=== PATIENT | male | born 1985 ===

== ENCOUNTER 2020-09-15 03:35 | Emergency (ER) | payer BC ==
[2020-09-15] MEDS ORDERED: Sodium Chloride 0.9% 2.5 ML Syringe FLUSH PRN (04:14)
[2020-09-15] MEDS ORDERED: Sodium Chloride 0.9% 10 ML Syringe FLUSH PRN (04:14)
--- NOTE | 2020-09-15 04:18 | EDM.PDOC ---
ED HPI GENERAL MEDICAL PROBLEM - General Chief Complaint: Abdominal Pain Stated Complaint: ABD AND BACK PAIN Time Seen by Provider: 09/15/20 04:09 - History of Present Illness INITIAL COMMENTS - FREE TEXT/NARRATIVE: History of present illness: [] Condition was awakened at 11:30 PM with pain in the epigastrium that radiated to the right flank and right paraspinal lower thoracic and upper lumbar area. The pain was associated with diaphoresis and nausea. The pain lasted for 3 hours. It went away and then just shortly before arrival at came back. Just before he arrived went away again. He is never had the pain before. It does not radiate down to his testicle. Not vomited. He has not been sick recently. Review of systems: As per history of present illness and below otherwise all systems reviewed and negative. Past medical history: As per history of present illness and as reviewed below otherwise noncontributory. Surgical history: As per history of present illness and as reviewed below otherwise noncontribu tory. Social history: No reported history of drug or alcohol abuse. Family history: As per history of present illness and as reviewed below otherwise noncontributory. Physical exam: Constitutional - well developed, well-nourished and in no acute distress HEENT - normocephalic, no evidence of trauma - external nose and mouth normal - no mass in neck and no JVD - mucosae moist EYES - full EOM, PERRL, no icterus - no evidence of inflammation, injection, or drainage Respiratory - no respiratory distress, equal bilateral expansion, lungs clear to auscultation and no abnormal lung sounds Cardiovascular - Regular Rhythm with S1 and S2 appreciated and no murmur, gallop or rub. GI - abdomen soft without distension or organomegaly - normal bowel sounds - no guard or rebound Musculoskeletal no gross deformity of long bones or joints - no tenderness, swelling or edema Neurologic - Alert and oriented times four - CN II-XII grossly intact - motor sensory and coordination symmetrically normal Psychiatric - appropriate mood and affect with normal thought content Hematologic - No petechiae or purpura - mucosa appropriate color and sclera not pale - normal nail bed color and refill Integument - no rash or evidence of trauma - normal turgor Diagnostics: [] Therapeutics: [] Impression: [] Plan: [] Definitive disposition and diagnosis as appropriate pending reevaluation and rev iew of above. Abdomen Pain Score (Numeric/FACES): 7 - Related Data Allergies Allergy/AdvReac Type Severity Reaction Status Date / Time sulfamethoxazole Allergy Hives Verified 09/15/20 03:51 [From ] trimethoprim [From ] Allergy Hives Verified 09/15/20 03:51 Home Meds: Home Meds Aspirin 81 mg PO DAILY 09/15/20 [History] Cholecalciferol (Vitamin D3) [Vitamin D] 5,000 unit PO DAILY 09/15/20 [History] Dulaglutide [Trulicity] 1.5 mg SQ ASDIRECTED 09/15/20 [History] Ezetimibe 10 mg PO DAILY 09/15/20 [History] Fexofenadine [Jacqueline] 100 mg PO DAILY 09/15/20 [History] Glimepiride 2 mg PO BID 09/15/20 [History] Multivitamin [Multi-Vitamin Daily] 1 each PO DAILY 09/15/20 [History] lisinopriL [Lisinopril] 20 mg PO DAILY 09/15/20 [History] metFORMIN [Glucophage] 500 mg PO BIDMEALS 09/15/20 [History] Past Medical History HEENT History: Reports: None Cardiovascular History: Reports: Hypertension Respiratory History: Reports: None Gastrointestinal History: Reports: None Genitourinary History: Reports: None Musculoskeletal History: Reports: None Neurological History: Reports: None Psychiatric History: Reports: None Endocrine/Metabolic History: Reports: Diabetes, Type II Insulin Pump Model and Paid Intern: N/A Hematologic History: Reports: None Immunologic History: Reports: None Oncologic (Cancer) History: Reports: None Dermatologic History: Reports: None - Infectious Disease History Infectious Disease History: Reports: None - Past Surgical History Head Surgeries/Procedures: Reports: None Social & Family History - Family History Family Medical History: Noncontributory - Tobacco Use Tobacco Use Status *Q: Never Tobacco User - Caffeine Use Caffeine Use: Reports: Coffee, Soda - Recreational Drug Use Recreational Drug Use: No ED ROS GENERAL - Review of Systems Review Of Systems: Comprehensive ROS is negative, except as noted in HPI. ED EXAM, GENERAL - Physical Exam Exam: See Below Free Text/Narrative:: My physical exam is in the HPI #1 Interpretation EKG Interpretation Comments: Electrocardiogram was done at 1028 at 4:20 AM and interpreted at 429. Sinus rhythm heart rate 86 [place] 0. [place] interval 156 QT 412. Normal QRS. Normal ST and T. No prior for comparison. Impression normal Course - Vital Signs Text/Narrative:: Oh 5:20 AM the appendix was enlarged on the CT. There is no blood in the urine. There is no evidence of kidney stone. The patient is slightly tender in the right upper quadrant with suggestion of a minimal Squires sign. The patient has no tenderness in the right lower quadrant no referred tenderness to the right lower quadrant no guarding rebound. Patient's pain was sudden and episodic with 2 episodes tonight. Gallstone is on the differential diagnosis and without a white count or fever and with no tenderness I do not suspect appendicitis even though the appendix is slightly enlarged. 05 20 8 AM the patient has a slightly enlarged appendix on the CT but no tenderness there. His tenderness is in the right upper quadrant. Because the episodic nature of his pain I plan to verify that he does or does not have gallstones by ultrasound. The patient's leukosis been running in the 200s. He gets a weekly parenteral diabetic medication and has not been on supplements. This is the first time in over 300 but he had a pizza last night. Plan supplement with regular because of the dietary cause of his surgery. We also have given him a liter of fluids. Will probably be able to control this today and complete his work-up for his abdominal pain I will let his primary doctor follow-up on the possibility of adding a sliding scale or other medications for diabetes. 652 the blood sugar came down to 168. Patient will be given something to eat. The ultrasound is pending at the end of my shift and the ultimate disposition will be up to my partner. I plan to put the patient on a proton pump inhibitor and advised the patient as to whether the radiologist thinks he sees gallstones. I did not think so on the ultrasound. No 704 the radiologist did call. Dr. Bolivar. He felt like there is a 1.8 cm mass it could be a sludge ball or polyp in the gallbladder but the size warranted an MRCP. The common duct was generous in size as well. Patient has no white count fever and understands he needs to follow-up with the surgical clinic and have an MRCP. Last Recorded V/S: Last Vital Signs Temp 97.3 F 09/15/20 03:45 Pulse 80 09/15/20 05:22 Resp 18 10/28/20 05:22 BP 130/86 09/15/20 05:22 Pulse Ox 98 09/15/20 05:22 - Orders/Labs/Meds Orders: Active Orders 24 hr Category Date Time Status EKG Documentation Completion [RC] AM Care 09/15/20 04:14 Active Sodium Chloride 0.9% [Normal Saline] 1,000 ml Med 09/15/20 04:30 Active IV ASDIRECTED Sodium Chloride 0.9% [Saline Flush] Med 09/15/20 04:14 Active 10 ml FLUSH ASDIRECTED PRN Sodium Chloride 0.9% [Saline Flush] Med 09/15/20 04:14 Active 2.5 ml FLUSH ASDIRECTED PRN Saline Lock Insert [OM.PC] Stat Oth 09/15/20 04:14 Ordered Medication Orders Sodium Chloride (Normal Saline) 1,000 mls @ 250 mls/hr IV ASDIRECTED FELICIA Last Infusion: 09/15/20 04:35 Dose: 999 mls/hr Documented by: Admin: 09/15/20 04:30 Dose: 250 mls/hr Documented by: TATY Sodium Chloride (Saline Flush) 10 ml FLUSH ASDIRECTED PRN PRN Reason: Keep Vein Open Last Admin: 09/15/20 05:00 Dose: 10 ml Documented by: TATY Sodium Chloride (Saline Flush) 2.5 ml FLUSH ASDIRECTED PRN PRN Reason: Keep Vein Open Last Admin: 09/15/20 05:01 Dose: 2.5 ml Documented by: TATY Labs: Laboratory Tests 09/15/20 09/15/20 09/15/20 Range/Units 03:45 03:50 03:50 WBC 9.80 (4.0-11.0) K/uL RBC 5.19 (4.50-5.90) M/uL Hgb 16.1 (13.0-17.0) g/dL Hct 47.8 (38.0-50.0) % MCV 92.1 (80.0-98.0) fL MCH 31.0 (27.0-32.0) pg MCHC 33.7 (31.0-37.0) g/dL RDW Std Deviation 45.5 (28.0-62.0) fl RDW Coeff of Leno 13 (11.0-15.0) % Plt Count 292 (150-400) K/uL MPV 10.30 (7.40-12.00) fL Neut % (Auto) 69.3 (48.0-80.0) % Lymph % (Auto) 22.7 (16.0-40.0) % [place] % (Auto) 7.0 (0.0-15.0) % Eos % (Auto) 0.8 (0.0-7.0) % Baso % (Auto) 0.2 (0.0-1.5) % Neut # (Auto) 6.8 H (1.4-5.7) K/uL Lymph # (Auto) 2.2 (0.6-2.4) K/uL [place] # (Auto) 0.7 (0.0-0.8) K/uL Eos # (Auto) 0.1 (0.0-0.7) K/uL Baso # (Auto) 0.0 (0.0-0.1) K/uL Nucleated RBC % 0.0 /100WBC Nucleated RBCs # 0 K/uL Sodium 134 L (136-148) mmol/L Potassium 4.2 (3.5-5.1) mmol/L Chloride 101 (98-107) mmol/L Carbon Dioxide 22.8 (21.0-32.0) mmol/L BUN 12 (7.0-18.0) mg/dL Creatinine 0.9 (0.8-1.3) mg/dL Est Cr Clr Drug Dosing 110.83 mL/min Estimated GFR (MDRD) > 60.0 ml/min Glucose 304 H (74-106) mg/dL POC Glucose (60-110) mg/dL Calcium 8.9 (8.5-10.1) mg/dL Total Bilirubin 0.3 (0.2-1.0) mg/dL AST 29 (15-37) IU/L ALT 59 (14-63) IU/L Alkaline Phosphatase 133 H (46-116) U/L Troponin I (0.000-0.056) ng/mL Total Protein 7.6 (6.4-8.2) g/dL Albumin 4.3 (3.4-5.0) g/dL Globulin 3.3 (2.6-4.0) g/dL Albumin/Globulin Ratio 1.3 (0.9-1.6) Lipase 187 (73-393) U/L Urine Color YELLOW Urine Appearance CLEAR Urine pH 6.5 (5.0-8.0) Ur Specific [place] 1.015 (1.001-1.035) Urine Protein NEGATIVE (NEGATIVE) mg/dL Urine Glucose (UA) >=1000 (NEGATIVE) mg/dL Urine Ketones 15 H (NEGATIVE) mg/dL Urine Occult Blood NEGATIVE (NEGATIVE) Urine Nitrite NEGATIVE (NEGATIVE) Urine Bilirubin NEGATIVE (NEGATIVE) Urine Urobilinogen 0.2 (<2.0) EU/dL Ur Leukocyte Esterase NEGATIVE (NEGATIVE) 09/15/20 09/15/20 Range/Units 03:50 06:21 WBC (4.0-11.0) K/uL RBC (4.50-5.90) M/uL Hgb (13.0-17.0) g/dL Hct (38.0-50.0) % MCV (80.0-98.0) fL MCH (27.0-32.0) pg MCHC (31.0-37.0) g/dL RDW Std Deviation (28.0-62.0) fl RDW Coeff of Leno (11.0-15.0) % Plt Count (150-400) K/uL MPV (7.40-12.00) fL Neut % (Auto) (48.0-80.0) % Lymph % (Auto) (16.0-40.0) % [place] % (Auto) (0.0-15.0) % Eos % (Auto) (0.0-7.0) % Baso % (Auto) (0.0-1.5) % Neut # (Auto) (1.4-5.7) K/uL Lymph # (Auto) (0.6-2.4) K/uL [place] # (Auto) (0.0-0.8) K/uL Eos # (Auto) (0.0-0.7) K/uL Baso # (Auto) (0.0-0.1) K/uL Nucleated RBC % /100WBC Nucleated RBCs # K/uL Sodium (136-148) mmol/L Potassium (3.5-5.1) mmol/L Chloride (98-107) mmol/L Carbon Dioxide (21.0-32.0) mmol/L BUN (7.0-18.0) mg/dL Creatinine (0.8-1.3) mg/dL Est Cr Clr Drug Dosing mL/min Estimated GFR (MDRD) ml/min Glucose (74-106) mg/dL POC Glucose 162 H (60-110) mg/dL Calcium (8.5-10.1) mg/dL Total Bilirubin (0.2-1.0) mg/dL AST (15-37) IU/L ALT (14-63) IU/L Alkaline Phosphatase (46-116) U/L Troponin I < 0.050 (0.000-0.056) ng/mL Total Protein (6.4-8.2) g/dL Albumin (3.4-5.0) g/dL Globulin (2.6-4.0) g/dL Albumin/Globulin Ratio (0.9-1.6) Lipase (73-393) U/L Urine Color Urine Appearance Urine pH (5.0-8.0) Ur Specific [place] (1.001-1.035) Urine Protein (NEGATIVE) mg/dL Urine Glucose (UA) (NEGATIVE) mg/dL Urine Ketones (NEGATIVE) mg/dL Urine Occult Blood (NEGATIVE) Urine Nitrite (NEGATIVE) Urine Bilirubin (NEGATIVE) Urine Urobilinogen (<2.0) EU/dL Ur Leukocyte Esterase (NEGATIVE) Meds: Medications Generic Name Dose Route Start Last Admin Trade Name Freq PRN Reason Stop Dose Admin Sodium Chloride 1,000 mls @ 250 mls/hr 09/15/20 04:30 09/15/20 04:35 Normal Saline IV 999 mls/hr ASDIRECTED FELICIA Infusion Sodium Chloride 10 ml 09/15/20 04:14 09/15/20 05:00 Saline Flush FLUSH 10 ml ASDIRECTED PRN Administration Keep Vein Open Sodium Chloride 2.5 ml 09/15/20 04:14 09/15/20 05:01 Saline Flush FLUSH 2.5 ml ASDIRECTED PRN Administration Keep Vein Open Discontinued Medications Generic Name Dose Route Start Last Admin Trade Name Freq PRN Reason Stop Dose Admin Dextrose/Water 50 ml 09/15/20 05:27 Dextrose 50% In Water IV ASDIRECTED PRN Hypoglycemia Glucagon 1 mg 09/15/20 05:27 Glucagen IM ASDIRECTED PRN Hypoglycemia Insulin Human Regular 8 unit 09/15/20 05:27 09/15/20 05:45 Novolin R IVPUSH 09/15/20 05:28 8 unit ONETIME ONE Administration Protocol Departure - Departure Time of Disposition: 07:03 Disposition: Home, Self-Care 01 Condition: Good Clinical Impression: Abdominal pain, Gall bladder polyp - Discharge Information Referrals: PCP,None [Primary Care Provider] - Forms: ED Department Discharge Additional Instructions: Your ultrasound showed what may be a large polyp in the gallbladder. It is large enough to warrant follow-up and an MRCP. Please make an appointment with primary care at the surgical clinic and follow-up on this take an [id number] proton pump inhibitor. The pharmacist can advise on the least costly. This is something such as omeprazole or pantoprazole. You can use antiacids when you get a sharp sudden pain and see if that helps. In the meantime because your appendix was slightly dilated if you have a fever and increasing pain in the right lower quadrant you should return. [facility] - General Surgery Professional Building [address] [place] [address], [address] [place] [address] [facility] - Primary [facility] [address] [place] [address] [place] [address] The following information is given to patients seen in the emergency department who are being discharged to home. This information is to outline your options for follow-up care. We provide all patients seen in our emergency department with a follow-up referral. The need for follow-up, as well as the timing and circumstances, are variable depending upon the specifics of your emergency department visit. If you don't have a primary care physician on staff, we will provide you with a referral. We always advise you to contact your personal physician following an emergency department visit to inform them of the circumstance of the visit and for follow-up with them and/or the need for any referrals to a consulting specialist. The emergency department will also refer you to a specialist when appropriate. This referral assures that you have the opportunity for follow-up care with a specialist. All of these measure are taken in an effort to provide you with optimal care, which includes your follow-up. Under all circumstances we always encourage you to contact your private physician who remains a resource for coordinating your care. When calling for follow-up care, please make the office aware that this follow-up is from your recent emergency room visit. If for any reason you are refused follow-up, please contact the [facility] Emergency Department at and asked to speak to the emergency department charge nurse. Sepsis Event Note (ED) - Evaluation Sepsis Screening Result: No Definite Risk - Focused Exam Vital Signs: Vital Signs Temp Pulse Resp BP Pulse Ox 09/15/20 05:22 80 18 130/86 98 09/15/20 03:45 97.3 F 96 18 144/92 H 97 - My Orders Last 24 Hours: My Active Orders 09/15/20 04:14 EKG Documentation Completion [RC] AM Sodium Chloride 0.9% [Saline Flush] 10 ml FLUSH ASDIRECTED PRN Sodium Chloride 0.9% [Saline Flush] 2.5 ml FLUSH ASDIRECTED PRN Saline Lock Insert [OM.PC] Stat 09/15/20 04:30 Sodium Chloride 0.9% [Normal Saline] 1,000 ml IV ASDIRECTED - Assessment/Plan Last 24 Hours: My Active Orders 09/15/20 04:14 EKG Documentation Completion [RC] AM Sodium Chloride 0.9% [Saline Flush] 10 ml FLUSH ASDIRECTED PRN Sodium Chloride 0.9% [Saline Flush] 2.5 ml FLUSH ASDIRECTED PRN Saline Lock Insert [OM.PC] Stat 09/15/20 04:30 Sodium Chloride 0.9% [Normal Saline] 1,000 ml IV ASDIRECTED
[2020-09-15] MEDS ORDERED: Sodium Chloride 0.9% 1,000 ML IV SCH (04:30)
[2020-09-15 04:36] LABS: BLOOD UREA NITROGEN,BUN 12 mg/dL (7.0-18.0); CARBON DIOXIDE,CO2 22.8 mmol/L (21.0-32.0); CHLORIDE,CL 101 mmol/L (98-107); GLUCOSE RANDOM 304 mg/dL (74-106); LIPASE 187 U/L (73-393); POTASSIUM,K 4.2 mmol/L (3.5-5.1); SODIUM,NA 134 mmol/L (136-148)
--- NOTE | 2020-09-15 04:48 | CR ---
INDICATION: Epigastric pain radiating to the back TECHNIQUE: Chest radiograph 1 view COMPARISON: None FINDINGS: Moderate degradation of image quality noted due to body habitus. Mediastinum: The mediastinum is normal in appearance. The heart silhouette is normal in size and morphology. Lung: Both lungs are unremarkable in appearance. No sign of pleural effusion seen. No pneumothorax is identified. Bone and Soft tissue: Unremarkable for age. IMPRESSION: 1. No acute cardiopulmonary disease is seen. Dictated by: Abel Domínguez MD @ 09/15/2020 04:47:45 (Electronically Signed)
--- NOTE | 2020-09-15 05:07 | CT ---
INDICATION: Epigastric pain radiating to the back TECHNIQUE: CT Abdomen and pelvis without i.v. contrast. Coronal and sagittal reformats were obtained. COMPARISON: None FINDINGS: Lower chest: Unremarkable. Liver: Mild fatty infiltration of the liver is noted. Spleen: Unremarkable. Pancreas: Unremarkable. Gallbladder: Unremarkable. Kidney: Unremarkable. No kidney or ureteral stones or obstruction seen. Adrenal: Unremarkable. Bowel: Unremarkable. Mild enlargement of the appendix is noted measuring 9 mm, with no secondary inflammatory changes seen. Vascular: Unremarkable. Lymph: Unremarkable. Peritoneum: Unremarkable. No pneumoperitoneum is seen. No significant ascites is noted. Pelvis: Unremarkable. Soft tissue: Unremarkable. Bone: Tiny bone islands are present over the right proximal femur and left parasymphyseal region. IMPRESSION: 1. Mild enlargement of the appendix is noted measuring 9 mm, with no secondary inflammatory changes seen. Clinical correlation and followup recommended to distinguish between a normal ectatic variant or early stage appendicitis. Dictated by Abel Domínguez MD @ 09/15/2020 5:06:15 AM Please note that all CT scans at this facility use dose modulation, iterative reconstruction, and/or weight-based dosing when appropriate to reduce radiation dose to as low as reasonably achievable. Dictated by: Abel Domínguez MD @ 09/15/2020 05:06:17 (Electronically Signed)
[2020-09-15] MEDS ORDERED: Insulin Regular, Human 100 Units/ML 10 ML Vial IVPUSH ONE (05:27)
[2020-09-15] MEDS ORDERED: Glucagon,Human Recombinant 1 MG Vial IM PRN (05:27)
[2020-09-15] MEDS ORDERED: 50% Dextrose in Water 50 ML Syringe IV PRN (05:27)
--- NOTE | 2020-09-15 06:53 | US ---
Indication: Right upper quadrant pain. Technique: Sonography of the abdomen was performed limited to the structures discussed below. Comparison: No prior ultrasounds for comparison Findings: The liver is normal in size. Echogenicity is slightly increased probably related to fatty infiltration. There is no focal mass and there is no evidence of intra or extrahepatic biliary ductal dilatation. The gallbladder shows non shadowing nonmobile focus in the fundus. This is relatively large measuring about 1.8 centimeters. This could be the focal form of adenomyosis, a polyp or an adherent sludge ball. Polyps of this size are generally considered potentially suspicious for malignancy and appropriate follow up is advised. There is no wall thickening, sonographic Squires`s or pericholecystic fluid. The common duct measures 7 millimeters which is prominent for a patient of this age. The pancreas is obscured by bowel gas. The right kidney as visualized appears normal The right lower quadrant was studied and the appendix could not be seen as a structure normal or otherwise. Therefore I can neither include or exclude appendicitis on the basis of this exam. Impression: 1. Hepatic steatosis. No focal mass or biliary ductal dilatation. 2. Focal mass and the fundus of the gallbladder measuring 1.8 centimeters. This could be the focal form of adenomyomatosis, a polyp or an adherent sludge ball. Polyps of this size are generally considered worrisome for harboring malignancy. Appropriate follow up is advised. 3. Mildly prominent common bile duct. The common duct measures 7 millimeters. 4. Pancreas obscured by bowel gas. Right kidney appears normal 5. The appendix is not seen as a structure normal otherwise appearance Dictated by Alex Bolivar MD @ Sep 15 2020 6:47AM Signed by Dr. Alex Bolivar @ Sep 15 2020 6:53AM
== END 2020-09-15 07:21 | disposition home or self-care (01) ==
LOC: MW.ED 03:35
DX: K82.4 Cholesterolosis of gallbladder (principal); Z79.82 Long term (current) use of aspirin; E11.9 Type 2 diabetes mellitus without complications; I10 Essential (primary) hypertension; Z79.84 Long term (current) use of oral hypoglycemic drugs; Z88.2 Allergy status to sulfonamides; Z88.1 Allergy status to other antibiotic agents; Z79.899 Other long term (current) drug therapy
CPT/HCPCS: 36415; 71045; 74176; 76705; 80053; 81003; 82962; 83690; 84484; 85025; 93005; 99284; J7030; 93010; 99285; J1815-GY

== ENCOUNTER 2020-10-06 06:34 | Day surgery (SDC) | payer BC ==
[~2020-10-06 06:34] MED LIST: Lactated Ringers 1,000 ML IV SCH; Sodium Chloride 0.9% 10 ML SDV IV PRN; Sodium Chloride 0.9% 10 ML Syringe FLUSH PRN; Sodium Chloride 0.9% 2.5 ML Syringe FLUSH PRN; ceFAZolin 2 GM in Premix Bag 1 BAG IV ONE
[2020-10-06] MEDS ORDERED: Rocuronium Bromide 50 MG/5 ML Syringe ONE (07:04)
[2020-10-06] MEDS ORDERED: Propofol 200 MG/20 ML SDV ONE ×2 (07:04→08:59)
[2020-10-06] MEDS ORDERED: fentaNYL 250 MCG/5 ML SDV ONE (07:04)
[2020-10-06] MEDS ORDERED: Lidocaine 2% 5 ML SDV ONE (07:04)
[2020-10-06] MEDS ORDERED: Midazolam 1 MG/ML 2 ML SDV ONE (07:04)
[2020-10-06] MEDS ORDERED: Dexamethasone 4 MG/ML 5 ML MDV ONE (07:04)
[2020-10-06] MEDS ORDERED: Ondansetron 4 MG/2 ML SDV ONE (07:04)
[2020-10-06] MEDS ORDERED: Ketamine 500 mg/10 ML MDV ONE (07:05)
--- NOTE | 2020-10-06 07:19 | PCM.PREANE ---
Preanesthetic Assessment - Anesthesia/Transfusion/Family Hx Anesthesia History: Prior Anesthesia Without Reaction Other Type of Anesthesia Reaction Comment: "mother and aunt had hard time coming out of anesthesia" Family History of Anesthesia Reaction: No Transfusion History: No Prior Transfusion(s) Intubation History: Unknown - Review of Systems General: No Symptoms Pulmonary: No Symptoms Cardiovascular: No Symptoms Gastrointestinal: Abdominal Pain Neurological: No Symptoms Other: Reports: None - Physical Assessment Height: 5 ft 8 in Weight: 102.965 kg ASA Class: 2 Mental Status: Alert & Oriented x3 Airway Class: Mallampati = 3 Dentition: Reports: Normal Dentition Thyro-Mental Finger Breadths: 3 Mouth Opening Finger Breadths: 3 ROM/Head Extension: Full Lungs: Clear to Auscultation, Normal Respiratory Effort Cardiovascular: Regular Rate, Regular Rhythm - Allergies Allergies/Adverse Reactions: Allergies Allergy/AdvReac Type Severity Reaction Status Date / Time sulfamethoxazole Allergy Hives Verified 10/01/20 11:56 [From ] trimethoprim [From ] Allergy Hives Verified 10/01/20 11:56 - Blood Blood Available: No - Anesthesia Plan Pre-Op Medication Ordered: None - Acknowledgements Anesthesia Type Planned: General Anesthesia Pt an Appropriate Candidate for the Planned Anesthesia: Yes Alternatives and Risks of Anesthesia Discussed w Pt/Guardian: Yes Pt/Guardian Understands and Agrees with Anesthesia Plan: Yes PreAnesthesia Questionnaire HEENT History: Reports: None Other HEENT History: wears glasses Cardiovascular History: Reports: High Cholesterol, Hypertension Respiratory History: Reports: None Gastrointestinal History: Reports: Cholelithiasis Other Gastrointestinal History: symptomatic cholelithiasis Genitourinary History: Reports: None Musculoskeletal History: Reports: None Neurological History: Reports: None Psychiatric History: Reports: None Endocrine/Metabolic History: Reports: Diabetes, Type II (glucose level 204 this morning), Obesity/BMI 30+ (BMI 34.5) Hematologic History: Reports: None Immunologic History: Reports: None Oncologic (Cancer) History: Reports: None Dermatologic History: Reports: None - Infectious Disease History Infectious Disease History: Reports: None - Past Surgical History Head Surgeries/Procedures: Reports: None HEENT Surgical History: Reports: Oral Surgery Cardiovascular Surgical History: Reports: None Respiratory Surgical History: Reports: None GI Surgical History: Reports: None Male Surgical History: Reports: None Endocrine Surgical History: Reports: None Neurological Surgical History: Reports: None Musculoskeletal Surgical History: Reports: None Oncologic Surgical History: Reports: None Dermatological Surgical History: Reports: Other (See Below) - SUBSTANCE USE Tobacco Use Status *Q: Never Tobacco User Recreational Drug Use History: No - HOME MEDS Home Medications: Home Meds Aspirin 81 mg PO DAILY 09/15/20 [History] Cholecalciferol (Vitamin D3) [Vitamin D] 5,000 unit PO DAILY 09/15/20 [History] Dulaglutide [Trulicity] 1.5 mg SQ WEEKLY 09/15/20 [History] Ezetimibe 10 mg PO DAILY 09/15/20 [History] Fexofenadine [Jacqueline] 100 mg PO DAILY 09/15/20 [History] Glimepiride 2 mg PO BID 09/15/20 [History] Multivitamin [Multi-Vitamin Daily] 1 each PO DAILY 09/15/20 [History] lisinopriL [Lisinopril] 20 mg PO DAILY 09/15/20 [History] metFORMIN [Glucophage] 500 mg PO BIDMEALS 09/15/20 [History] Esomeprazole Magnesium [Nexium] 20 mg PO DAILY 10/01/20 [History] - CURRENT (IN HOUSE) MEDS Current Meds: Current Medications Lactated Ringer's (Ringers, Lactated) 1,000 mls @ 125 mls/hr IV ASDIRECTED FELICIA Sodium Chloride (Saline Flush) 2.5 ml FLUSH ASDIRECTED PRN PRN Reason: Keep Vein Open Sodium Chloride (Normal Saline) 10 ml IV ASDIRECTED PRN PRN Reason: IV Use Sodium Chloride (Saline Flush) 10 ml FLUSH ASDIRECTED PRN PRN Reason: Keep Vein Open Discontinued Medications Dexamethasone (Dexamethasone) Confirm Administered Dose 20 mg .ROUTE .STK-MED ONE Stop: 10/06/20 07:05 Fentanyl (Sublimaze) Confirm Administered Dose 250 mcg .ROUTE .STK-MED ONE Stop: 10/06/20 07:05 Cefazolin Sodium/Dextrose 2 gm (/ Premix) 50 mls @ 100 mls/hr IV ONETIME ONE Stop: 10/04/20 11:19 Ketamine HCl (Ketalar) Confirm Administered Dose 500 mg .ROUTE .STK-MED ONE Stop: 10/06/20 07:06 Lidocaine (Xylocaine-Mpf 2%) Confirm Administered Dose 5 ml .ROUTE .STK-MED ONE Stop: 10/06/20 07:05 Midazolam HCl (Versed 1 Mg/Ml) Confirm Administered Dose 2 mg .ROUTE .STK-MED ONE Stop: 10/06/20 07:05 Ondansetron HCl (Zofran) Confirm Administered Dose 4 mg .ROUTE .STK-MED ONE Stop: 10/06/20 07:05 Propofol (Diprivan 20 Ml) Confirm Administered Dose 400 mg .ROUTE .STStreamcore System-MED ONE Stop: 10/06/20 07:05 Rocuronium [place] (Rocuronium [place]ley) Confirm Administered Dose 50 mg .ROUTE .STK-MED ONE Stop: 10/06/20 07:05
[2020-10-06] MEDS ORDERED: Bupivacaine 0.5% 30 ML SDV ONE (07:32)
[2020-10-06] MEDS ORDERED: ePHEDrine 50 MG/ML SDV ONE (08:28)
[2020-10-06] MEDS ORDERED: Sodium Chloride 0.9% 20 ML ONE (08:29)
[2020-10-06] MEDS ORDERED: Glycopyrrolate 0.2 MG/ML SDV ONE (08:47)
[2020-10-06] MEDS ORDERED: fentaNYL 100 MCG/2 ML SDV IVPUSH PRN (09:13)
[2020-10-06] MEDS ORDERED: Ketorolac 30 MG/ML SDV ONE (09:26)
--- NOTE | 2020-10-06 09:47 | PCM.OPNOTE ---
- General Post-Op/Procedure Note Date of Surgery/Procedure: 10/06/20 Operative Procedure(s): Laparoscopic cholecystectomy Findings: Gallbladder with minimal omental adhesions Pre Op Diagnosis: Symptomatic cholelithiasis Post-Op Diagnosis: same Anesthesia Technique: General ET Tube Primary Surgeon: Cee Spencer Pathology: Gallbladder Fluid Replacement, Intraop: 1,800 Output, Urine Amount: 240 EBL in mLs: 10 Condition: Good
--- NOTE | 2020-10-06 10:40 | PCM.POSTAN ---
POST ANESTHESIA ASSESSMENT - MENTAL STATUS Mental Status: Alert, Oriented - VITAL SIGNS Vital Signs: Last Vital Signs Temp 36.6 C 10/06/20 09:40 Pulse 60 10/06/20 10:36 Resp 18 10/06/20 10:36 BP 126/71 10/06/20 10:36 Pulse Ox 96 10/06/20 10:36 - RESPIRATORY Respiratory Status: Respiratory Rate WNL, Airway Patent, O2 Saturation Stable - CARDIOVASCULAR CV Status: Pulse Rate WNL, Blood Pressure Stable - GASTROINTESTINAL GI Status: No Symptoms - PAIN Pain Score: 0 - POST OP HYDRATION Hydration Status: Adequate & Stable - OBSERVATIONS Free Text/Narrative:: No anesthesia problems
--- NOTE | 2020-10-06 10:42 | OR ---
SURGEON: CEE SPENCER MD DATE OF PROCEDURE: 10/06/2020 PREOPERATIVE DIAGNOSIS: Symptomatic cholelithiasis. POSTOPERATIVE DIAGNOSIS: Symptomatic cholelithiasis. PROCEDURE PERFORMED: Laparoscopic cholecystectomy. PRIMARY SURGEON: Cee Spencer MD ANESTHESIA: General endotracheal anesthesia. FLUIDS: 1800 mL of crystalloid. ESTIMATED BLOOD LOSS: 10 mL. URINE OUTPUT: 240 mL. FINDINGS: Gallbladder with some mild omental adhesions. COMPLICATIONS: None. INDICATIONS: The patient is a 35-year-old male who presented to the emergency room with upper abdominal pain. Workup revealed a mass in the gallbladder. MRCP was performed to clarify this. This showed gallbladder with gallstones as well as sludge and no evidence of a mass. The patient was diagnosed with symptomatic cholelithiasis. We discussed the need for cholecystectomy. I explained that I would attempt this laparoscopically, but convert to open should I be unable to perform it safely. I discussed the expected perioperative course as well as the risks including bleeding, infection, or damage to surrounding structures. The patient verbalized understanding and wishes to proceed. PROCEDURE IN DETAIL: The patient was brought into the OR and placed on the OR table in supine position. A time-out was completed verifying the patient's name, age, date of , allergies, and procedure to be performed. General endotracheal anesthesia was induced. The left arm was tucked to the patient's side and a Andersen catheter placed. The patient was secured to the table. The abdomen was prepped and draped in usual standard fashion. I anesthetized the infraumbilical fold with 0.5% Marcaine plain. An 11 blade was used to make an incision along the infraumbilical fold. Cautery was used to dissect down to the level of the subcutaneous fat. I then bluntly dissected down to the fascia. The fascia was elevated with Ar's and incised sharply with curved Cox scissors. The peritoneum was identified. This was elevated and incised sharply as well. Entry to the abdomen was palpated digitally. A 12 mm Lenora trocar was placed into the abdomen and the abdomen insufflated. I inserted a 5 mm 30-degree scope and inspected the area underneath my initial trocar placement. No damage to surrounding structures was noted. 5 mm trocars were placed in the following locations under direct visualization; one in the epigastric area, one in the right flank, and one 2 fingerbreadths below the right subcostal margin in the midclavicular line. The patient was placed into reverse Trendelenburg position and airplaned slightly to the left. The dome of the gallbladder was grasped and elevated cranially. There was some omental adhesions along the proximal half of the gallbladder. These were taken down using gentle blunt dissection as well as hook cautery. Once this was completed, I grasped the infundibulum. I began dissection along the cystic duct and artery. There was a large amount of fat and some dense adhesions around this area. Using blunt dissection as well as hook cautery, I dissected the area free. I could see the right hepatic artery along the base of my dissection field. Because of this, I dissected my gallbladder off the cystic plate correction up the gallbladder. I then cleared away any adhesions. Once my critical view was achieved, a photograph was taken. I doubly clipped and ligated my cystic duct and artery. There was one small branch vessel that was coming off the side. I clipped and ligated this as well. I then carried my dissection up the distal half of the cystic plate using electrocautery. The gallbladder was removed and placed in an Endo Catch bag. I inspected my operative field. Small bleeding points were cauterized with hook cautery. A small piece of Surgicel was placed within the proximal gallbladder bed and hemostasis was achieved. A small amount of bile was spilled into the abdomen from the gallbladder itself. This was suctioned out and the abdomen irrigated until the irrigant ran clear. I reinspected my operative field and it was hemostatic with no evidence of bile leakage. The 5 mm trocars were removed under direct visualization, the abdomen allowed to desufflate. I then removed my 12 mm trocar as well as the Endo Catch bag with the gallbladder in it. The gallbladder was sent to pathology. The fascia at the infraumbilical port site was closed with interrupted 0 Vicryl sutures. The subcutaneous fat layer was closed with an interrupted 3-0 Vicryl stitch. The skin was closed with a running 4-0 Monocryl stitch. The 5 mm trocar sites were closed with interrupted 4-0 Monocryl sutures. Steri-Strips and sterile dressings were applied. The patient tolerated the procedure well and was transferred to the PACU in stable condition. All counts were complete and correct at the end of the case. LEMEASH / YAN /[id number]
[2020-10-06] MEDS ORDERED: Acetaminophen 1,000 MG in Premix Bag 1 BAG IV PRN (11:30)
[2020-10-06] MEDS ORDERED: Acetaminophen/oxyCODONE 325-5 MG Tab PO ONE (11:49)
--- NOTE | 2020-10-06 12:40 | PCM48HPAN ---
Post Anesthesia Note - EVALUATION WITHIN 48HRS OF ANESTHETIC Vital Signs in Normal Range: Yes Patient Participated in Evaluation: Yes Respiratory Function Stable: Yes Airway Patent: Yes Cardiovascular Function Stable: Yes Hydration Status Stable: Yes Pain Control Satisfactory: Yes Nausea and Vomiting Control Satisfactory: Yes Mental Status Recovered: Yes Vital Signs: Last Vital Signs Temp 36.6 C 10/06/20 09:40 Pulse 60 10/06/20 10:36 Resp 18 10/06/20 10:36 BP 126/71 10/06/20 10:36 Pulse Ox 96 10/06/20 10:36 - COMMENTS/OBSERVATIONS Free Text/Narrative:: No anesthesia problems
== END 2020-10-06 12:45 | disposition home or self-care (01) ==
LOC: MW.SDS 06:34
PROVIDERS: ATTEND Surgery
DX: K80.10 Calculus of gallbladder with chronic cholecystitis without obstruction (principal); E11.9 Type 2 diabetes mellitus without complications; I10 Essential (primary) hypertension; E78.00 Pure hypercholesterolemia, unspecified; Z88.2 Allergy status to sulfonamides; Z79.82 Long term (current) use of aspirin; Z79.899 Other long term (current) drug therapy; Z79.84 Long term (current) use of oral hypoglycemic drugs
CPT/HCPCS: 47562; A9270; J0131; J1100; J1885; J2001; J2250; J2405; J2704; J3010; J3490; J7120; 00790; 82962; 88304